=== PATIENT | female | born 1975 | race Caucasian/White ===

== ENCOUNTER 2019-11-10 00:53 | Emergency (ER) | payer OTHER ==
[2019-11-10 00:58] VITALS: RESP 16; TEMP 97.7
[2019-11-10] MEDS ORDERED: diphenhydrAMINE 50 MG/ML 1 ML VIAL IVP STA (01:07)
[2019-11-10] MEDS ORDERED: HYDROmorphone 0.5 MG/0.5 ML SYRINGE IVP STA (01:07)
[2019-11-10] MEDS ORDERED: SODIUM CHLORIDE 0.9% 1,000 ML IV ONE (01:07)
[2019-11-10] MEDS ORDERED: METOCLOPRAMIDE 5 MG/ML 2 ML VIAL IVP STA (01:07)
--- NOTE | 2019-11-10 02:18 | CT ---
EXAMINATION TYPE: CT brain wo con DATE OF EXAM: 11/10/2019 COMPARISON: None HISTORY: Sudden onset headache CT DLP: 1094.4 mGycm Automated exposure control for dose reduction was used. Images were obtained without contrast. Ventricles and sulci appear normal. There is no mass effect nor midline shift. There is no sign of in tracranial hemorrhage. The calvarium is intact. There is no evidence of cerebral edema. IMPRESSION: Normal unenhanced head CT scan.
[2019-11-10] MEDS ORDERED: SUMAtriptan succinate 6 MG/0.5 ML VIAL SQ STA (02:45)
[2019-11-10] MEDS ORDERED: KETOROLAC 15 MG/ML 1 ML VIAL IVP STA (02:45)
[2019-11-10] MEDS ORDERED: methylPREDNISolone SOD SUCCI 125 MG/2 ML VIAL IV STA (02:45)
--- NOTE | 2019-11-10 03:05 | ED ---
Headache HPI - General Chief Complaint: Headache Stated Complaint: Headache Time Seen by Provider: 11/10/19 01:02 Mode of arrival: wheelchair Limitations: no limitations - History of Present Illness Initial Comments: 44-year-old female patient presents to the emergency department today for evaluation of headache. Patient states headache started suddenly around 12:15. States it started suddenly and gradually increased in severity. States that the pain encompasses her entire head. States that she did have light sensitivity with this. She also had nausea and did have an episode of vomiting. Patient states this is a worse headache of her life. Denies history of similar type headaches. States she's had 1 migraine in the past was over 12 years ago related to control. She states she did try ibuprofen for the headache but it did not work. She denies numbness, tingling, or weakness to her extremities. Denies any recent head injury. Denies new medications. Denies blurred or double vision. Patient denies any recent rash, cough, shortness of breath, chest pain, abdominal pain, diarrhea, constipation, back pain, hematuria, dysuria, urinary urgency, urinary frequency, headache, visual changes, or any other complaints. - Related Data Home Medications Medication Instructions Recorded Confirmed No Known Home Medications 11/09/13 11/09/13 Allergies Allergy/AdvReac Type Severity Reaction Status Date / Time No Known Allergies Allergy Verified 11/10/19 00:58 Review of Systems ROS Statement: Those systems with pertinent positive or pertinent negative responses have been documented in the HPI. ROS Other: All systems not noted in ROS Statement are negative. Past Medical History Past Medical History: No Reported History History of Any Multi-Drug Resistant Organisms: None Reported Past Surgical History: Tonsillectomy, Tubal Ligation Past Psychological History: No Psychological Hx Reported Smoking Status: Current every day smoker Past Alcohol Use History: Occasional Past Drug Use History: None Reported General Exam Limitations: no limitations General appearance: alert, in no apparent distress, other (This is a well- developed, well-nourished adult female patient in distress related to pain. Vital signs upon presentation are temperature 97.7F, pulse 88, respirations 16, blood pressure 182/119, pulse ox 97% on room air.) Eye exam: Present: normal appearance, PERRL, EOMI. Absent: scleral icterus, conjunctival injection, nystagmus, periorbital swelling ENT exam: Present: normal exam, normal oropharynx, mucous membranes moist, TM's normal bilaterally Neck exam: Present: full ROM. Absent: meningismus Respiratory exam: Present: normal lung sounds bilaterally. Absent: respiratory distress, wheezes, rales, rhonchi, stridor Cardiovascular Exam: Present: regular rate, normal rhythm, normal heart sounds. Absent: systolic murmur, diastolic murmur, rubs, gallop, clicks GI/Abdominal exam: Present: soft, normal bowel sounds. Absent: distended, tenderness, guarding, rebound, rigid Neurological exam: Present: alert, oriented X3, CN II-XII intact Expanded Speech: Present: fluid speech Cranial nerves: EOM's Intact: Normal, Nystagmus: Normal Motor strength exam: RUE: 5, LUE: 5, RLE: 5, LLE: 5 Psychiatric exam: Present: normal affect, normal mood Skin exam: Present: warm, dry, intact, normal color. Absent: rash Course Vital Signs 11/10/19 11/10/19 00:55 02:12 Temperature 97.7 F Pulse Rate 88 75 Respiratory 16 16 Rate Blood Pressure 182/119 157/90 O2 Sat by Pulse 97 99 Oximetry Medical Decision Making - Medical Decision Making 44-year-old female patient presented to the emergency department today for evaluation of headache. Patient did report sudden onset and this being the worst headache of her life. Physical examination was unremarkable. She was neurologically intact with no focal deficits. IV was inserted she was given Reglan, Benadryl, Dilaudid initially. CT of the brain was negative for any signs of bleed. Symptom onset was approximately 30 minutes to an hour prior to arrival. Upon reevaluation patient had no improvement of symptoms. She continued to have no neurologic deficits. We did discuss lumbar puncture for further evaluation of her headache, patient declined. We did administer Toradol, Imitrex, and Solu-Medrol. Upon reevaluation patient is resting comfortably in bed. States that her symptoms are completely resolved. She currently denies any headache. She does feel comfortable being discharged home at this time. She'll be instructed to follow-up with the primary care physician for recheck in 1-2 days. Return parameters are discussed in detail. Patient verbalizes understanding and agrees with this plan. - Radiology Data Radiology results: report reviewed, image reviewed CT brain without contrast is obtained. Report was reviewed in its entirety. Impression by Dr. Osman shows normal unenhanced head computed tomography scan. Disposition Clinical Impression: Headache Disposition: HOME SELF-CARE Condition: Good Instructions (If sedation given, give patient instructions): Acute Headache (ED) Additional Instructions: Follow-up through primary care physician for recheck in 1-2 days. If you continue to have headaches discuss Neurology referral or MRI. Return to the emergency department immediately for any new, worsening, or concerning symptoms. Is patient prescribed a controlled substance at d/c from ED?: No Referrals: Yanick Colón MD [REFERRING] - 1-2 days Time of Disposition: 03:43
[2019-11-10 03:57] VITALS: BP 159/77; PULSE 69
== END 2019-11-10 03:53 | disposition home or self-care (01) ==
LOC: EC 00:53
DX: R51 Headache (principal); F17.200 Nicotine dependence, unspecified, uncomplicated
CPT/HCPCS: 99284; 96374; 96375 ×4; 96361; 70450; J3030; J1200; J2765; J2930; J1885; J1170

== ENCOUNTER → 2021-06-09 | Outpatient (CLI) | payer BC ==
--- NOTE | 2021-06-16 12:36 | P.HOLTER ---
48 Hour Holter monitor note: Patient wore a Holter monitor for 48 hrs from 06/09/2021 until 06/11/2021. Findings: Patient's baseline heart rate was normal sinus rhythm. There were no signficant atrial fibrillation, atrial flutter, or ventricular tachycardia episodes. There were no significant pauses greater than 2 seconds. Patient's minimum heart rate was 67. Patient's maximum heart rate was 126. Patient's average heart rate was 84. There were a total of 20 PACs which represented less than 0.01% PAC burden. There were a total of 33 singlets PVCs which represented less than 0.01% PVC burden. There was no SVT noted. Patient had 1 patient activated event of palpitations which corresponded with normal sinus rhythm. Conclusions: 48 hour Holter monitor showing normal sinus rhythm and rare PVCs which were asymptomatic. Patient's one activated event of palpitations corresponded with normal sinus rhythm.
--- NOTE | 2021-06-17 09:07 | HM ---
48 Hour Holter monitor note: Patient wore a Holter monitor for 48 hrs from 06/09/2021 until 06/11/2021. Findings: Patient's baseline heart rate was normal sinus rhythm. There were no significant atrial fibrillation, atrial flutter, or ventricular tachycardia episodes. There were no significant pauses greater than 2 seconds. Patient's minimum heart rate was 67. Patient's maximum heart rate was 126. Patient's average heart rate was 84. There were a total of 20 PACs which represented less than 0.01% PAC burden. There were a total of 33 singlets PVCs which represented less than 0.01% PVC burden. There was no SVT noted. Patient had 1 patient activated event of palpitations which corresponded with normal sinus rhythm. Conclusions: 48 hour Holter monitor showing normal sinus rhythm and rare PVCs which were asymptomatic. Patient's one activated event of palpitations corresponded with normal sinus rhythm. MTDD
== END | disposition home or self-care (01) ==
LOC: RADECHMAIN 07:53
PROVIDERS: ATTEND Family Medicine
DX: R00.2 Palpitations (principal)
CPT/HCPCS: 93225; 93226

== ENCOUNTER → 2023-10-20 | Outpatient (CLI) | payer BC | END | disposition home or self-care (01) | LOC: LABPRL 12:00 | PROVIDERS: ATTEND Physician Assistant | DX: I10 Essential (primary) hypertension (principal); E78.2 Mixed hyperlipidemia; F41.1 Generalized anxiety disorder; F17.210 Nicotine dependence, cigarettes, uncomplicated | CPT/HCPCS: 80053; 80061; 84443; 85025 ==

== ENCOUNTER → 2023-11-29 | Outpatient (CLI) | payer BC ==
--- NOTE | 2023-12-04 08:36 | MM ---
Reason for Exam: Screening (asymptomatic). Baseline mammogram. Patient History: Menarche at age 14. First Full-Term at age 22. Premenopausal. Last menstrual period: 11/24/2023 Risk Values: Michelle 5 year model risk: 0.8%. NCI Lifetime model risk: 8.5%. Prior Study Comparison: Patient's first Mammogram. Tissue Density: The breasts are heterogeneously dense, which may obscure small masses. Findings: Analyzed By CAD. There is no suspicious group of microcalcifications in either breast. Asymmetric density left 12:00 position 5.6 cm from the nipple. Additional views are recommended. Overall Assessment: Incomplete: need additional imaging evaluation, BI-RAD 0 Management: Diagnostic Mammogram of the left breast. . Patient should continue monthly self-breast exams. A clinical breast exam by your physician is recommended on an annual basis. This exam should not preclude additional follow-up of suspicious palpable abnormalities. Note on Michelle scores and lifetime risk: 1. A Michelle score greater than 3% is considered moderate risk. If this is the case, consider specialist referral to assess eligibility for a risk reducing agent. 2. If overall lifetime risk for the development of breast cancer is 20% or higher, the patient may qualify for future screening with alternating mammogram and breast MRI. [facility], , 12/04/2023 8:33 AM. Electronically signed and approved by: Galo Leal M.D. Radiologis
== END | disposition home or self-care (01) ==
LOC: RADMAMWWP 14:56
PROVIDERS: ATTEND Family Medicine
DX: Z12.31 Encounter for screening mammogram for malignant neoplasm of breast
CPT/HCPCS: 77067

== ENCOUNTER → 2023-12-05 | Outpatient (CLI) | payer BC ==
--- NOTE | 2023-12-05 13:21 | MM ---
Reason for Exam: Additional evaluation requested from abnormal screening. Last screening mammogram was performed less than 1 month ago. Patient History: Menarche at age 14. First Full-Term at age 22. Premenopausal. Risk Values: Michelle 5 year model risk: 0.8%. NCI Lifetime model risk: 8.5%. Prior Study Comparison: 11/29/2023 Bilateral MG screening mammo w CAD, [facility]. Tissue Density: Left: The breasts are heterogeneously dense, which may obscure small masses. Findings: Analyzed By CAD. Focal Density upper central left breast is improved upon additional views. Overall Assessment: Probably benign, BI-RAD 3 Management: Diagnostic Mammogram of the left breast in 6 months. . Results were given to the patient verbally at the time of exam. Patient should continue monthly self-breast exams. A clinical breast exam by your physician is recommended on an annual basis. This exam should not preclude additional follow-up of suspicious palpable abnormalities. Note on Michelle scores and lifetime risk: 1. A Michelle score greater than 3% is considered moderate risk. If this is the case, consider specialist referral to assess eligibility for a risk reducing agent. 2. If overall lifetime risk for the development of breast cancer is 20% or higher, the patient may qualify for future screening with alternating mammogram and breast MRI. [facility], , 12/05/2023 1:17 PM. Electronically signed and approved by: Galo Leal M.D. Radiologis
== END | disposition home or self-care (01) ==
LOC: RADMAMWWP 12:48
PROVIDERS: ATTEND Family Medicine
CPT/HCPCS: 77061; 77065